=== PATIENT | male | born 1980 | race Caucasian/White ===

== ENCOUNTER → 2017-02-02 15:20 | Outpatient (CLI) | payer BC | END | disposition home or self-care (01) | LOC: D.CT 15:20 | DX: R05 Cough (principal) ==

== ENCOUNTER → 2017-07-06 13:15 | Outpatient (CLI) | payer BC ==
[2017-07-07 14:19] LABS: IMMUNOGLOBULIN A 179 mg/dL (90-386); IMMUNOGLOBULIN G 975 mg/dL (700-1600)
[2017-07-10 12:15] LABS: IMMUNOGLOBULIN E 12 IU/mL (0-100)
== END | disposition home or self-care (01) ==
LOC: D.RT 13:15
PROVIDERS: Internal Medicine Pulmonary Disease
DX: J45.991 Cough variant asthma (principal)